=== PATIENT | male | born 1955 | race Caucasian/White ===

== ENCOUNTER → 2021-03-17 | Outpatient (CLI) | payer MEDICARE ==
[2014-01-18 00:31] VITALS: BP 134/66
[~2021-03-17] MED LIST: REGADENOSON 0.4 MG/5 ML DISP.SYRIN. IV ONE
--- NOTE | 2021-03-17 13:24 | CARD ---
MR#: [id number] Date of Study: 03/17/2021 Ordering Physician: ANGELO COOPER, Referring Physician: ANGELO COOPER Tech: Samanta Haider [facility] APPROVED REPORT EXAM: Two-dimensional and M-mode echocardiogram with Doppler and color Doppler. Other Information Quality : AverageHR: 77bpm Rhythm : NSR INDICATION Syncope RISK FACTORS Hypertension 2D DIMENSIONS Left Atrium(2D)3.3 (1.6-4.0cm)IVSd1.1 (0.7-1.1cm) LVDd4.6 (3.9-5.9cm)LVOT Diameter2.6 (1.8-2.4cm) PWd1.1 (0.7-1.1cm)IVSs1.2 (0.8-1.2cm) LVDs3.2 (2.5-4.0cm)FS (%) 31.5 % PWs1.4 (0.8-1.2cm)SV59.1 ml Aortic Valve AoV Peak Junior.130.7cm/sAoV VTI27.0cm AO Peak GR.6.8mmHgAO Mean GR.4mmHg Mitral Valve MV E Fnkmwwhx72.8cm/sMV DECEL [id number] MV A Zcbtxtwn28.7cm/sMV KLL143fr E/A Ratio0.8MVA (PHT)1.94cm2 TDI E/Lateral E'6.7E/Medial E'5.1 Pulmonary Valve PV Peak Qeoawyhm412.1cm/sPV Peak Grad.4mmHg Tricuspid Valve TR P. Jihwlsoa296jz/sTR Peak Gr.23mmHg LEFT VENTRICLE The left ventricle is normal size. There is normal left ventricular wall thickness. The left ventricu lar systolic function is normal and the ejection fraction is within normal range. Estimated ejection fraction is 55 to 60%. There is normal LV segmental wall motion. Transmitral Doppler flow pattern is Grade I-abnormal relaxation pattern. RIGHT VENTRICLE The right ventricle is normal size. There is normal right ventricular wall thickness. The right ventr icular systolic function is normal. ATRIA The left atrium size is normal. The right atrium size is normal. The interatrial septum is intact wit h no evidence for an atrial septal defect or patent foramen ovale as noted on 2-D or Doppler imaging. AORTIC VALVE The aortic valve is normal in structure and function. Doppler and Color Flow revealed no significant aortic regurgitation. There is no significant aortic valvular stenosis. MITRAL VALVE The mitral valve is normal in structure and function. There is no evidence of mitral valve prolapse. There is no mitral valve stenosis. Doppler and Color-flow revealed trace mitral regurgitation. TRICUSPID VALVE The tricuspid valve is normal in structure and function. Doppler and Color Flow revealed trace tricus pid regurgitation. Estimated PAP 26 mmHg. There is no tricuspid valve stenosis. PULMONIC VALVE The pulmonary valve is normal in structure and function. Doppler and Color Flow revealed no pulmonic valvular regurgitation. GREAT VESSELS The aortic root is normal in size. The ascending aorta is normal in size. The IVC is normal in size a nd collapses >50% with inspiration. PERICARDIAL EFFUSION There is no evidence of significant pericardial effusion. Critical Notification Critical Value: No <Conclusion> The left ventricle is normal size. The left ventricular systolic function is normal and the ejection fraction is within normal range. Estimated ejection fraction is 55 to 60%. Doppler and Color Flow revealed no significant aortic regurgitation. There is no significant aortic valvular stenosis. Doppler and Color-flow revealed trace mitral regurgitation. Doppler and Color Flow revealed trace tricuspid regurgitation. Estimated PAP 26 mmHg. Signed by : Ben Butler MD Electronically Approved : 03/17/2021 13:24:22
--- NOTE | 2021-03-17 13:28 | RAD ---
MR#: [id number] Date of Study: 03/17/2021 Ordering Physician: ANGELO COOPER Referring Physician: JENNIFER WYNN Tech: CASSANDRA Aragon APPROVED REPORT Test Type: Pharmacological Stress Nurse/Tech: Kari Iniguez R.N. Test Indications: abnormal ekg Cardiac History: htn, family hx Medications: See Electronic Medical Record Medical History: See Electronic Medical Record Resting ECG: SR Resting Heart Rate: 71 bpm Resting Blood Pressure: 140/77mmHg Pretest Chest Pain: No chest pain Nurse/Tech Notes S1S2, lungs CTA Consent: The procedure was explained to the patient in lay terms. Informed consent was witnessed. Baldo eout was entered into [employer]. History and Stress Test performed by CASSANDRA Aragon Pharm. Details Pharmacologic stress testing was performed using 0.4mg per 5ml of regadenoson given intravenously ove r 7-10 seconds. Stress Symptoms SOA POST EXERCISE Reason for Termination: Infusion complete Max HR: 106 bpm Max Blood Pressure: 144/68mmHg Blood Pressure response to exercise: Normal blood pressure response during stress. Heart Rate response to exercise: wnl Chest Pain: No. Arrhythmia: Yes. started having pvc's ST Change: No. INTERPRETATION Stress EKG Conclusion: EKG showed a sinus rhythm with nonspecific ST-T wave changes. The stress EKG showed no significant changes from baseline. No EKG evidence of stress-induced ischemia. Imaging Protocol IMAGE PROTOCOL: Rest Tc-99m/stress Tc-99m 1 day Rest: Stress: Viability: Radiopharm.Tc99m FtshwsiusKq82w Sestamibi Xaqt66iSo 30mCi Duration 15min. 10min. Img Date 03/17/2021 03/17/2021 Inj-Img Ngaq86bqq. 60min. Rest Admin Site:IV - Right AntecubitalAdministrator:CASSANDRA Aragon Stress Admin Site: IV - Right AntecubitalAdministrator: Amaury Rodrigez, RT (R)(N) STRESS DATA End Diast. Vol.89.0mlLVEDV index BSA40.0ml End Syst. Vol.18.0mlLVESV index BSA8.0ml Myocardial Dnxk567.0gEject. Qryutsat65.0% Stress Scores Regional WT0.00Summed WT0.00 Regional WM0.00Summed WM0.00 LV Perfusion The stress scans showed no significant defects. The rest scans showed no significant defects. Nuclear imaging shows no reversible ischemia or infarct. Wall Motion Left ventricular systolic function is normal with no regional wall motion abnormalities and an ejecti on fraction of greater than 70%. LV Perf. Quant 17 Seg. SSS1.00 17 Seg. SRS5.00 17 Seg. SDS0.00 Stress Defect Extent (% LAD)0.00Rest Defect Extent (% LAD)0.00Rev. Defect Extent (% LAD)0.00 Stress Defect Extent (% LCX) 0.00Rest Defect Extent (% LCX)0.00Rev. Defect Extent (% LCX)0.00 Stress Defect Extent (% RCA)0.00Rest Defect Extent (% RCA)15.60Rev. Defect Extent (% RCA)0.00 Stress Defect Extent (% MYA)0.00Rest Defect Extent (% MYA)3.70Rev. Defect Extent (% MYA)0.00 Conclusion 1. No EKG evidence of stress-induced ischemia. 2. Nuclear imaging shows no reversible ischemia or infarct. 3. Normal left ventricular systolic function with an ejection fraction of greater than 70%. 4. Low risk Lexiscan nuclear stress test. Signed by : Ben Butler MD Electronically Approved : 03/17/2021 13:27:59
== END ==
LOC: ECHO 08:40
PROVIDERS: ATTEND Internal Medicine Cardiovascular Disease
DX: R55 Syncope and collapse (principal); R94.31 Abnormal electrocardiogram [ECG] [EKG]; I10 Essential (primary) hypertension
CPT/HCPCS: 78452; 93017; 93306; A9500; J2785